=== PATIENT | male | born 1995 | race African-American/Black ===

== ENCOUNTER 2021-09-24 10:11 | Emergency (ER) | payer BC ==
[~2021-09-24] VITALS: Ht 172.7 cm; Wt 57.0 kg
[2021-09-24 10:31] VITALS: BP 126/85
[2021-09-24 11:05] LABS: CHLORIDE 107 mEq/L (98-107)
[2021-09-24 11:06] LABS: BASOPHILS % 0.8 % (0.0-2.0); EOSINOPHILS % 1.5 % (0.0-5.0); HEMATOCRIT. 44.2 % (42.0-52.0); HEMOGLOBIN. 15.3 g/dL (14.0-18.0); LYMPHOCYTES % 29.4 % (20.0-50.0); MEAN CORPUSCULAR HEMOGLOBIN 30.8 pg (28.0-32.0); MEAN CORPUSCULAR VOLUME 89.3 fL (80.0-94.0); MONOCYTES % 8.8 % (2.0-8.0); NEUTROPHILS % 59.5 % (40.0-76.0); PLATELET 323 x1000/uL (130-400); RED BLOOD CELL COUNT 4.95 mill/uL (4.7-6.1); RED CELL DISTRIBUTION WIDTH 14.3 % (11.6-14.6)
== END 2021-09-24 11:31 | disposition home or self-care (01) ==
LOC: ER 10:11
DX: R53.83 Other fatigue (principal); R53.1 Weakness; U09.9 Post COVID-19 condition, unspecified
CPT/HCPCS: 36415; 80053; 85025; 99283